=== PATIENT | male | born 1980 | race African-American/Black ===

== ENCOUNTER 2017-08-21 17:47 | Emergency (ER) | payer OTHER ==
[~2017-08-21] VITALS: Ht 177.8 cm; Wt 128.0 kg
[2017-08-21 19:14] LABS: MCH 26.4 PG (29.0-34.0); MCHC 33.2 G/DL (30.0-36.0); MCV 79.6 FL (86-99); MEAN PLAT.VOLUME 10.4 uM^3 (9.0-12.4); PLATELET COUNT 270 K/uL (156-360); RBC DIS.WIDTH-SD 36.8 % (39-53); RED BLOOD COUNT 5.53 M/uL (4.00-5.50); WHITE BLOOD COUNT 16.8 K/uL (4.1-10.2)
[2017-08-21 19:27] LABS: CHLORIDE 99 mEq/L (99-109); POTASSIUM 4.1 mEq/L (3.7-5.4); SODIUM 134 mEq/L (136-147)
[2017-08-21 19:30] LABS: GLUCOSE 127 mg/dL (70-99)
[2017-08-21 19:31] LABS: ANION GAP 9 MEQ/L (2-14)
[2017-08-21 19:32] LABS: TOTAL BILIRUBIN 0.8 mg/dL (0.0-1.0)
[2017-08-21 19:33] LABS: ALKALINE PHOSPHATASE 78 IU/L (3-129)
[2017-08-21 19:34] LABS: UREA NITROGEN (BUN) 16 mg/dL (9-23)
[2017-08-21 19:37] LABS: LIPASE 5 U/L (1.0-51.0)
[2017-08-21 19:40] LABS: ADD MIUA? NO; BILIRUBIN NEGATIVE; BLOOD NEGATIVE; COLOR YELLOW ((YELLOW)); GLUCOSE (STRIP) NEGATIVE; KETONES 20; LEUKOCYTES NEGATIVE; NITRITE NEGATIVE; PROTEIN (STRIP) 30; SPECIFIC GRAVITY 1.016 (1.000-1.030); UROBILINOGEN 0.2 MG/DL (0.2-1.0)
[2017-08-21 19:49] LABS: GFR ESTIMATE (CALCULATED) > 59 mL/min/
[2017-08-21 20:06] LABS: UCUL ADDED? NO
[2017-08-21] MEDS ORDERED: ZOFRAN ODT4 MG PO (23:06)
[2017-08-21] MEDS ORDERED: NORCO 5/3251 TABLET PO (23:06)
[2017-08-21 23:39] VITALS: BP 130/77
== END 2017-08-21 23:40 | disposition home or self-care (01) ==
LOC: EME 17:47 → EXP 17:47
DX: K80.50 Calculus of bile duct without cholangitis or cholecystitis without obstruction (principal); D72.829 Elevated white blood cell count, unspecified
CPT/HCPCS: 74177; 80053; 81003; 83690; 85027; 99281; 99285; J1885; J2405; J3010; J7030

== ENCOUNTER 2017-09-07 09:52 | Day surgery (SDC) | payer OTHER ==
[~2017-09-07] VITALS: Ht 177.8 cm; Wt 122.0 kg
[~2017-09-07 09:52] MED LIST: NORCO 5/3251 TABLET PO; ZOFRAN ODT4 MG PO
[2017-09-07 10:21] VITALS: BP 138/87
[2017-09-07] MEDS ORDERED: PERCOCET 5/31 TABLET PO (13:13)
[2017-09-07 14:40] VITALS: BP 144/89
[2017-09-07 15:40] VITALS: BP 127/77
[2017-09-07 17:40] VITALS: BP 136/80
[2017-09-07 19:10] VITALS: BP 140/87
== END 2017-09-07 19:11 | disposition home or self-care (01) ==
LOC: SDC 09:52
PROC: 0FT44ZZ Resection of Gallbladder, Percutaneous Endoscopic Approach (ICD-10-PCS; principal; 2017-09-07)
DX: K80.10 Calculus of gallbladder with chronic cholecystitis without obstruction (principal); Z80.1 Family history of malignant neoplasm of trachea, bronchus and lung; E66.9 Obesity, unspecified; Z68.39 Body mass index [BMI] 39.0-39.9, adult
CPT/HCPCS: 88304; J0131; J0330; J0690; J1100; J1170; J1885; J2250; J2405; J2710; J3010